=== PATIENT | female | born 1990 | race Caucasian/White ===

== ENCOUNTER 2020-07-10 13:03 | Emergency (ER) | payer MEDICAID, OTHER ==
[~2020-07-10] VITALS: Ht 162.6 cm; Wt 56.7 kg
[2020-07-10 13:47] LABS: Basophils # (auto) 0.1 10 ^3/uL (0-0.2); Basophils % (auto) 0.6 % (0.0-2.0); Eosinophils # (auto) 0.1 10 ^3/uL (0-0.8); Eosinophils % (auto) 1.2 % (0.0-7.0); Hematocrit 40.6 % (36.0-46.0); Hemoglobin 13.7 g/dL (12.2-16.2); Lymphocytes % (auto) 17.2 % (10.0-50.0); Mean Corpuscular Hemoglobin 30.1 pg (28.0-32.0); Mean Corpuscular Hgb Conc. 33.9 g/dL (32.0-36.0); Mean Corpuscular Volume 88.7 fL (80.0-100.0); Monocytes # (auto) 1.3 10 ^3/uL (0-1.3); Monocytes % (auto) 11.2 % (0.0-12.0); Neutrophils % (auto) 69.8 % (37.0-80.0); Red Blood Cells 4.57 10^6/uL (4.0-5.20); Red Cell Distribution Width 13.4 % (11.8-14.3); White Blood Cell 11.5 10^3/uL (4.4-10.8)
[2020-07-10] MEDS ORDERED: TETANUS-DIPTH-ACEL PERTUSSIS 0.5ML SYR Tdap IM ONE (14:00)
[2020-07-10] MEDS ORDERED: CLINDAMYCIN 900MG IV 50 ML IV ONE (14:00)
[2020-07-10] MEDS ORDERED: SODIUM CHLORIDE 0.9% 1,000 ML IV ONE ×2 (14:00)
[2020-07-10 14:09] LABS: Urine Bacteria FEW /hpf (None Seen); Urine Blood Negative /uL (Negative); Urine Specific Gravity 1.016 (1.001-1.035); Urine WBC <1 /hpf (0 - 5)
[2020-07-10] MEDS ORDERED: KETOROLAC TROMETH 30 MG/ML 1ML VIAL IV ONE (14:15)
[2020-07-10 14:27] LABS: Albumin 3.4 g/dL (3.4-5.0); Calcium 8.5 mg/dL (8.5-10.1); Potassium 3.9 mmol/L (3.5-5.1)
[2020-07-10 14:30] LABS: BUN/Creatinine Ratio 17.2; Lactic Acid w/Reflex 2.1 mmol/L (0.4-2.0)
[2020-07-10 14:32] LABS: Bilirubin, Total 0.3 mg/dL (0.2-1.0); Total Protein 7.5 g/dL (6.4-8.2)
[2020-07-10 16:00] VITALS: BP 104/72
== END 2020-07-10 17:58 | disposition left against medical advice (07) ==
LOC: ER 13:03
DX: A41.9 Sepsis, unspecified organism (principal); G35 Multiple sclerosis; F11.20 Opioid dependence, uncomplicated; F15.10 Other stimulant abuse, uncomplicated; L02.92 Furuncle, unspecified; F17.210 Nicotine dependence, cigarettes, uncomplicated
CPT/HCPCS: 36415; 70450; 71046; 80053; 81001; 83605; 83735; 84702; 85025; 87040; 90471; 90715; 96365; 96366; 96375; 99285; J1885; J3490; J7030; 93005